=== PATIENT | male | born 1965 | race African-American/Black ===

== ENCOUNTER 2018-10-16 07:33 | Inpatient (IN) | payer OTHER ==
[2018-10-16] VITALS (17 sets, daily range): BP systolic 165–235; BP diastolic 95–134
[~2018-10-16] VITALS: Ht 188 cm; Wt 124.9 kg
--- NOTE | ~2018-10-16 | PROC ---
[facility] [address] [place] [address] PROCEDURE REPORT Name: BENITO DYER JR Room: [address] ADM IN M.R.#: [id number] Admission: 10/16/18 Attend Phys: Andrew Olivo MD Discharge: Date of : 63 Report #: [id number] THIS REPORT FOR: //name// For GI report, please see the Provation report in Perceptive 7 content. By: 0650Medical Records Staff BRIGID /MARIBEL
[~2018-10-16 07:33] MED LIST: CATAPRES0.2 MG PO; COREG25 MG PO; HYZAAR 100-251 EACH PO; NORVASC10 MG PO
[2018-10-16 07:54] LABS: ABSOLUTE EOSINOPHILS 0.2 thou/uL (0.0-0.7); ABSOLUTE MONOCYTES 0.6 thou/uL (0.0-1.2); ABSOLUTE NEUTROPHILS 7.3 thou/uL (1.6-8.1); BASOPHILS 0.4 %; EOSINOPHILS 1.4 %; HEMATOCRIT 20.5 % (42.0-52.0); LYMPHOCYTES 26.9 %; MCH 29.2 pg (26.0-34.0); MCHC 33.6 g/dL (28.0-37.0); MCV 87.1 fL (80.0-100.0); MONOCYTES 5.8 %; MPV 8.7 fl. (7.2-11.1); NUCLEATED RBCS 0 /100WBC; PLATELET COUNT* 235 thou/uL (150-400); POLYS 65.5 %; RBC 2.35 mil/uL (4.50-6.00); RDW-CV 14.2 % (10.5-14.5); WBC 11.1 thou/uL (4.0-11.0)
[2018-10-16 08:01] LABS: HEMOGLOBIN 6.9 gm/dL (14.0-18.0)
[2018-10-16 08:02] LABS: ANION GAP 7 mmol/L (7-16); BUN 105 mg/dL (7-18); CALCIUM 8.3 mg/dL (8.5-10.1); CHLORIDE 107 mmol/L (98-107); CO2 26 mmol/L (21-32); CREATININE 3.5 mg/dL (0.6-1.3); GLUCOSE 215 mg/dL (70-99); POTASSIUM 3.8 mmol/L (3.5-5.1); SODIUM 140 mmol/L (136-145)
[2018-10-16 08:06] LABS: PROTIME 10.2 Seconds (9.20-11.50)
[2018-10-16 08:11] LABS: ALBUMIN 2.4 g/dL (3.4-5.0); ALKALINE PHOSPHATASE 68 U/L (46-116); SGOT 16 U/L (15-37); SGPT 25 U/L (30-65); TOTAL BILIRUBIN 0.1 mg/dL (<0.1-1.0); TOTAL PROTEIN 5.3 g/dL (6.4-8.2); TROPONIN-I LEVEL <0.06 ng/mL (<0.06)
[2018-10-16 15:20] LABS: HEMATOCRIT 21.6 % (42.0-52.0); HEMOGLOBIN 7.3 gm/dL (14.0-18.0)
[2018-10-16 16:13] LABS: URINE BILIRUBIN NEGATIVE (Negative); URINE BLOOD TRACE (Negative); URINE CLARITY CLEAR; URINE COLOR YELLOW; URINE GLUCOSE-RANDOM 1+ (Negative); URINE KETONES NEGATIVE (Negative); URINE LEUKOCYTES-REFLEX NEGATIVE (Negative); URINE NITRITE-REFLEX NEGATIVE (Negative); URINE PROTEIN 2+ (Negative); URINE UROBILINOGEN 0.2 E.U./dl (0.2-1.0)
[2018-10-16 16:23] LABS: BACTERIA-REFLEX None Seen /HPF (None Seen); CASTS None Seen /LPF (None Seen); CRYSTALS None Seen /LPF (None Seen); MUCUS 0-3 Light strn/LPF (None Seen); SQUAMOUS 0-3 Few /LPF (0-3); URINE RBC None Seen /HPF (0-2); URINE WBC-REFLEX None Seen /HPF (0-5)
[2018-10-16 16:26] LABS: AMP/METHAMP Negative (Negative); BARBITURATES Negative (Negative); BENZODIAZEPINES Negative (Negative); COCAINE Negative (Negative); METHADONE Negative (Negative); OPIATES Negative (Negative); PCP Negative (Negative); THC Negative (Negative)
[2018-10-16 18:19] LABS: HEMATOCRIT 23.1 % (42.0-52.0); HEMOGLOBIN 7.8 gm/dL (14.0-18.0)
[2018-10-17] VITALS (38 sets, daily range): BP systolic 159–222; BP diastolic 92–122
[2018-10-17 05:35] LABS: ABSOLUTE BASOPHILS 0.1 thou/uL (0.0-0.2); ABSOLUTE EOSINOPHILS 0.2 thou/uL (0.0-0.7); ABSOLUTE LYMPHOCYTES 2.6 thou/uL (0.8-5.3); ABSOLUTE MONOCYTES 0.8 thou/uL (0.0-1.2); ABSOLUTE NEUTROPHILS 12.2 thou/uL (1.6-8.1); BASOPHILS 0.5 %; EOSINOPHILS 1.4 %; HEMATOCRIT 23.9 % (42.0-52.0); HEMOGLOBIN 7.9 gm/dL (14.0-18.0); LYMPHOCYTES 16.5 %; MCH 29.5 pg (26.0-34.0); MCV 89.4 fL (80.0-100.0); MONOCYTES 5.3 %; MPV 8.7 fl. (7.2-11.1); NUCLEATED RBCS 0 /100WBC; PLATELET COUNT* 276 thou/uL (150-400); POLYS 76.3 %; RBC 2.68 mil/uL (4.50-6.00); RDW-CV 14.5 % (10.5-14.5); WBC 15.9 thou/uL (4.0-11.0)
[2018-10-17 05:51] LABS: ANION GAP 8 mmol/L (7-16); BUN 80 mg/dL (7-18); CALCIUM 8.6 mg/dL (8.5-10.1); CHLORIDE 114 mmol/L (98-107); CHOLESTEROL 186 mg/dL (<200); CO2 25 mmol/L (21-32); CREATININE 2.9 mg/dL (0.6-1.3); GLUCOSE 197 mg/dL (70-99); HDL CHOLESTEROL 26 mg/dL (>40); LDL CHOLESTEROL 87 mg/dL (<100); POTASSIUM 3.6 mmol/L (3.5-5.1); SODIUM 147 mmol/L (136-145); TC:HDL 7.2 Ratio (Not establshd); TRIGLYCERIDE 368 mg/dL (<150); VLDL 74 mg/dL (<40)
[2018-10-17 05:52] LABS: SERUM ASSESSMENT CLEAR
[2018-10-17 10:08] LABS: GLYCOHEMOGLOBIN (HGB A1C) 8.7 % (4.8-5.6)
--- NOTE | 2018-10-17 13:50 | EKG ---
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[facility] : 1965 Requested By: Huey Pena Order Number: [id number] MD: Medhat Pond Measurements Intervals [place] Rate: 87 P: 36 VA: 150 QRS: 18 QRSD: 94 T: 149 QT: 394 QTc: 474 Interpretive Statements Sinus rhythm Left ventricular hypertrophy Abnormal T, consider ischemia, lateral leads or LV strain No previous ECG available for comparison Electronically Signed On 10-17-2018 13:50:43 CDT by Medhat Pond [email or web address] <ELECTRONICALLY SIGNED> By: Medhat Pond MD, [facility] 10/17/18 1350 0804 08 Medhat Pond MD, FAC /EPI
--- NOTE | 2018-10-17 15:30 | 2DMMODE ---
[place] [address] 2 D/M-MODE ECHOCARDIOGRAM Name: BENITO DYER JR Room: [address] IN [facility]#: [id number] Admission: 10/16/18 Attend Phys: Andrew Olivo, Discharge: Date of : 63 Date of Service: 10/17/18 1529 Report #: [id number] THIS REPORT FOR: //name// APPROVED REPORT Study performed: 10/17/2018 13:34:33 EXAM: Comprehensive 2D, Doppler, and color-flow Echocardiogram Patient Location: In-Patient Room #: 002 Status: routine BSA: 2.62 HR: 102 bpm BP: 179/103 mmHg Rhythm: NSR Other Information Study Quality: Good Indications CVA/TIA Echo Enhancing Agent Indication: Rule out Shunt Agent(s) / Amount(s) Used: Agitated Saline 10 cc 2D Dimensions IVSd: 16.04 (7-11mm) LVOT Diam: 23.12 (18-24mm) LVDd: 54.17 mm PWd: 15.29 (7-11mm) Ascending Ao: 33.84 (22-36mm) LVDs: 33.50 (25-40mm) Aortic Root: 36.48 mm Volumes Left Atrial Volume (Systole) LA ESV Index: 44.30 mL/m2 Aortic Valve AoV Peak Mahin.: 1.85 m/s AO Peak Gr.: 13.62 mmHg LVOT Max P.13 mmHg AO Mean Gr.: 7.86 mmHg LVOT Mean P.51 mmHg LVOT Max V: 1.33 m/s AO V2 VTI: 26.10 cm LVOT Mean V: 0.87 m/s HEATHER (VTI): 3.95 cm2 LVOT V1 VTI: 24.56 [place] [address] 2 D/M-MODE ECHOCARDIOGRAM Name: BENITO DYER JR Room: [address] IN .R.#: [id number] Admission: 10/16/18 Attend Phys: Andrew Olivo, Discharge: Date of : 63 Date of Service: 10/17/18 1529 Report #: [id number] Mitral Valve E/A Ratio: 0.87 MV Decel. Time: 173.55 ms MV E Max Mahin.: 0.92 m/s MV PHT: 50.33 ms MVA (PHT): 4.37 cm2 TDI E/Lateral E': 10.22 E/Medial E': 9.20 Medial E' Mahin.: 0.10 m/s Lateral E' Mahin.: 0.09 m/s Pulmonary Valve PV Peak Mahin.: 1.44 m/s PV Peak Gr.: 8.25 mmHg Left Ventricle The left ventricle is normal size. There is normal LV segmental wall motion. Moderate concentric left ventricular hypertrophy. Left ventricular systolic function is normal. The left ventricular ejection fraction is within the normal range. LVEF is 65%. Grade I - abnormal relaxation pattern. Right Ventricle The right ventricle is normal size. The right ventricular systolic function is normal. Atria Left atrium is mildly dilated. Interatrial septum is intact without evidence of ASD or PFO. The right atrium size is normal. Aortic Valve The aortic valve is normal in structure. No aortic regurgitation is present. There is no aortic valvular stenosis. Mitral Valve The mitral valve is normal in structure. Mild mitral regurgitation. No evidence of mitral valve stenosis. Tricuspid Valve The tricuspid valve is normal in structure. Unable to assess PA pressure. Trace tricuspid regurgitation. Pulmonic Valve The pulmonary valve is normal in structure. There is no pulmonic [place] [address] 2 D/M-MODE ECHOCARDIOGRAM Name: BENITO DYER Room: [address] IN [facility]#: [id number] Admission: 10/16/18 Attend Phys: Andrew Olivo, Discharge: Date of : 63 Date of Service: 10/17/18 1529 Report #: [id number] Great Vessels The aortic root is normal in size. IVC is normal in size and collapses >50% with inspiration. Pericardium There is no pericardial effusion. <Conclusion> The left ventricle is normal size. Moderate concentric left ventricular hypertrophy. Left ventricular systolic function is normal. The left ventricular ejection fraction is within the normal range. LVEF is 65%. Grade I - abnormal relaxation pattern. The right ventricle is normal size. Left atrium is mildly dilated. The aortic valve is normal in structure. The mitral valve is normal in structure. Mild mitral regurgitation. The tricuspid valve is normal in structure. IVC is normal in size and collapses >50% with inspiration. There is no pericardial effusion. There is normal LV segmental wall motion. <ELECTRONICALLY SIGNED> By: Medhat Pond MD, FACC 10/17/18 1529 1529 1529 Medhat Pond MD, FACC /INF
[2018-10-18 00:28] VITALS: BP 179/107
[2018-10-18 04:00] VITALS: BP 169/90
[2018-10-18 05:19] LABS: ABSOLUTE BASOPHILS 0.1 thou/uL (0.0-0.2); ABSOLUTE EOSINOPHILS 0.3 thou/uL (0.0-0.7); ABSOLUTE LYMPHOCYTES 2.4 thou/uL (0.8-5.3); ABSOLUTE MONOCYTES 0.8 thou/uL (0.0-1.2); ABSOLUTE NEUTROPHILS 9.3 thou/uL (1.6-8.1); BASOPHILS 0.6 %; EOSINOPHILS 2.1 %; HEMATOCRIT 22.1 % (42.0-52.0); HEMOGLOBIN 7.3 gm/dL (14.0-18.0); LYMPHOCYTES 18.6 %; MCH 29.6 pg (26.0-34.0); MCHC 32.8 g/dL (28.0-37.0); MCV 90.4 fL (80.0-100.0); MPV 8.6 fl. (7.2-11.1); NUCLEATED RBCS 0 /100WBC; PLATELET COUNT* 269 thou/uL (150-400); POLYS 72.7 %; RBC 2.45 mil/uL (4.50-6.00); RDW-CV 14.9 % (10.5-14.5); WBC 12.8 thou/uL (4.0-11.0)
[2018-10-18 05:33] LABS: ALBUMIN 2.5 g/dL (3.4-5.0); CALCIUM 8.2 mg/dL (8.5-10.1); CREATININE 2.8 mg/dL (0.6-1.3); POTASSIUM 3.7 mmol/L (3.5-5.1); TOTAL BILIRUBIN 0.3 mg/dL (<0.1-1.0); TOTAL PROTEIN 5.6 g/dL (6.4-8.2)
[2018-10-18 07:45] VITALS: BP 194/111
[2018-10-18 12:22] VITALS: BP 187/106
[2018-10-18 15:44] VITALS: BP 176/90
[2018-10-18 20:00] VITALS: BP 186/96
[2018-10-19] VITALS (7 sets, daily range): BP systolic 146–192; BP diastolic 69–107
[2018-10-19 05:01] LABS: HEMATOCRIT 21.8 % (42.0-52.0); HEMOGLOBIN 7.2 gm/dL (14.0-18.0); MCH 29.7 pg (26.0-34.0); MCHC 32.9 g/dL (28.0-37.0); MCV 90.3 fL (80.0-100.0); MPV 8.1 fl. (7.2-11.1); RBC 2.42 mil/uL (4.50-6.00); RDW-CV 14.4 % (10.5-14.5); WBC 9.7 thou/uL (4.0-11.0)
[2018-10-19 05:17] LABS: ALBUMIN 2.4 g/dL (3.4-5.0); CALCIUM 8.1 mg/dL (8.5-10.1); CREATININE 2.9 mg/dL (0.6-1.3); POTASSIUM 3.5 mmol/L (3.5-5.1); TOTAL BILIRUBIN 0.3 mg/dL (<0.1-1.0); TOTAL PROTEIN 5.5 g/dL (6.4-8.2)
[2018-10-20] VITALS: BP 184/105
[2018-10-20 04:00] VITALS: BP 188/108
[2018-10-20 07:05] VITALS: BP 165/91
[2018-10-20 11:06] LABS: ABSOLUTE EOSINOPHILS 0.1 thou/uL (0.0-0.7); ABSOLUTE LYMPHOCYTES 0.9 thou/uL (0.8-5.3); ABSOLUTE MONOCYTES 0.6 thou/uL (0.0-1.2); ABSOLUTE NEUTROPHILS 8.5 thou/uL (1.6-8.1); BASOPHILS 0.3 %; HEMATOCRIT 22.1 % (42.0-52.0); HEMOGLOBIN 7.4 gm/dL (14.0-18.0); LYMPHOCYTES 8.5 %; MCH 30.3 pg (26.0-34.0); MCHC 33.5 g/dL (28.0-37.0); MCV 90.3 fL (80.0-100.0); MONOCYTES 5.9 %; MPV 8.5 fl. (7.2-11.1); NUCLEATED RBCS 0 /100WBC; PLATELET COUNT* 302 thou/uL (150-400); POLYS 84.3 %; RBC 2.45 mil/uL (4.50-6.00); RDW-CV 14.8 % (10.5-14.5); WBC 10.1 thou/uL (4.0-11.0)
[2018-10-20 11:12] LABS: CALCIUM 8.6 mg/dL (8.5-10.1); CREATININE 2.8 mg/dL (0.6-1.3); MAGNESIUM 1.9 mg/dL (1.8-2.4); POTASSIUM 3.5 mmol/L (3.5-5.1)
[2018-10-20 12:46] VITALS: BP 194/114
[2018-10-20 12:47] LABS: URINE BILIRUBIN NEGATIVE (Negative); URINE BLOOD 3+ (Negative); URINE CLARITY CLEAR; URINE COLOR YELLOW; URINE GLUCOSE-RANDOM 1+ (Negative); URINE KETONES NEGATIVE (Negative); URINE LEUKOCYTES-REFLEX NEGATIVE (Negative); URINE NITRITE-REFLEX NEGATIVE (Negative); URINE PROTEIN 3+ (Negative); URINE SPECIFIC GRAVITY 1.025 (1.005-1.030); URINE UROBILINOGEN 0.2 E.U./dl (0.2-1.0)
[2018-10-20 12:56] LABS: BACTERIA-REFLEX 1-9 Few /HPF (None Seen); CRYSTALS None Seen /LPF (None Seen); FINE GRANULAR CASTS 4-10 Moderate /LPF (None Seen); HYALINE CASTS 4-10 Moderate /LPF (None Seen); MUCUS 0-3 Light strn/LPF (None Seen); SQUAMOUS 4-10 Moderate /LPF (0-3); URINE WBC-REFLEX 0-5 Rare /HPF (0-5)
[2018-10-20 16:00] VITALS: BP 168/95
[2018-10-20 20:15] VITALS: BP 186/103
[2018-10-21] VITALS (7 sets, daily range): BP systolic 150–192; BP diastolic 86–107
[2018-10-21 12:49] LABS: % SATURATION 10 % (20-39); IRON 23 ug/dL (50-175)
--- NOTE | 2018-10-21 14:47 | EKG ---
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: : 1965 Requested By: Andrew Olivo Order Number: [id number] Reading MD: Dimitri Coe Measurements Intervals [place] Rate: 110 P: 68 [place]: 132 QRS: 33 QRSD: 92 T: 194 QT: 324 QTc: 439 Interpretive Statements Sinus tachycardia Probable LVH with secondary repol abnrm Anterior ST elevation, probably due to LVH Baseline wander in lead(s) V1 Compared to ECG 10/16/2018 08:04:04 No significant changes noted Electronically Signed On 10-21-2018 14:47:34 CDT by Dimitri Coe [email or web address] <ELECTRONICALLY SIGNED> By: Dimitri Coe MD, FACC 10/21/18 1447 1748 1748 Dimitri Coe MD, [facility] /EPI
--- NOTE | 2018-10-21 18:03 | CON ---
[address] [address] CONSULTATION Name: BENITO DYER JR Room: [address] IN .R.#: [id number] Admission: 10/16/18 Attend Phys: Andrwe Olivo MD Discharge: Date of : 63 Report #: [id number] THIS REPORT FOR: //name// CC: Andrew Olivo [facility] physician/PCP NEUROLOGY CONSULTATION HISTORY OF PRESENT ILLNESS: The patient is a 53-year-old male who presented to the Emergency Room with slurred speech and right upper extremity weakness. The patient's family heard him in the bathroom and when they got to him, they noticed urine over the bed. The patient was standing in a confused, stupor. Upon arrival to the Emergency Department, the patient's speech and confusion had improved. Apparently, the patient stayed up late last night to work. The patient has also noted some vomiting and diarrhea for 2 days with dark brown stools. At this point, his states that he has returned to his baseline. The patient does have a history of hypertension. He takes aspirin 81 mg daily and takes his blood pressure medication as prescribed. PAST MEDICAL HISTORY: Hypertension. PAST SURGICAL HISTORY: Negative. MEDICATIONS: Clonidine 0.2 mg b.i.d. and carvedilol 25 mg b.i.d. ALLERGIES: None. PHYSICAL EXAMINATION: VITAL SIGNS: Temperature of 37, pulse rate 107, respiratory rate 25, blood pressure 200/109, and bedside pulse oximetry 100% on room air. NEUROLOGIC: Cranial nerves 2-12 are grossly intact. Motor exam demonstrates symmetrical strength in all 4 extremities with tone and bulk normal. There is no evidence of dysmetria. LABORATORY DATA: Hematology: White blood cell count 15.9, hemoglobin 7.9, and hematocrit 23.9. Chemistry: Sodium 147, potassium 3.6, chloride 114, carbon dioxide 25, BUN 80, creatinine 2.9, and glucose 197. Triglycerides 368, cholesterol 186, LDL cholesterol 87, and HDL cholesterol 26. Drug screen negative. IMAGING STUDIES: MRI of the head demonstrates multiple punctate foci in the right frontal region and a single focus in the left thalamus consistent with acute stroke. MRA of the head and neck demonstrate possible short segment narrowing of the left M1 segment, questionable small aneurysm at the junction of the left common carotid artery and proximal M1 segment. IMPRESSION AND PLAN: This patient has had several punctate strokes, [place] [address] CONSULTATION Name: BENITO DYER JR Room: [address]#: [id number] Admission: 10/16/18 Attend Phys: Andrew Olivo MD Discharge: Date of : 63 Report #: [id number] most likely secondary to hypertension. When the patient came to the Emergency Room, his blood pressure was initially 214/129, this is the highest reading that he has had, although he has had several high readings as well. His highest reading has been 235/131. I do not think it is necessary for the patient to have an elevated blood pressure as is sometimes the case with stroke. I think the patient would benefit from better blood pressure control on a more immediate basis. The patient has not had an echocardiogram in over 3 years and this will be ordered for him. Given the bilateral nature of these strokes, a thrombus should be considered, although this is most likely secondary to hypertension. The patient will probably also benefit from medication for hyperlipidemia. The neurologist personal care home administrator on Sunday will follow the patient. I thank you for your kind referral of this patient. <ELECTRONICALLY SIGNED> By: Gracy Dasilva DO 10/21/18 1803 1222 0149Gracy Dasilva DO /nt
[2018-10-22] VITALS: BP 171/100
[2018-10-22 04:00] VITALS: BP 172/99
[2018-10-22 08:00] VITALS: BP 102/51
[2018-10-22 08:21] LABS: ABSOLUTE EOSINOPHILS 0.3 thou/uL (0.0-0.7); ABSOLUTE LYMPHOCYTES 1.3 thou/uL (0.8-5.3); ABSOLUTE MONOCYTES 0.7 thou/uL (0.0-1.2); ABSOLUTE NEUTROPHILS 6.4 thou/uL (1.6-8.1); BASOPHILS 0.5 %; EOSINOPHILS 3.6 %; HEMATOCRIT 22.6 % (42.0-52.0); HEMOGLOBIN 7.6 gm/dL (14.0-18.0); LYMPHOCYTES 14.9 %; MCH 30.3 pg (26.0-34.0); MCHC 33.6 g/dL (28.0-37.0); MCV 90.2 fL (80.0-100.0); MONOCYTES 8.2 %; MPV 8.3 fl. (7.2-11.1); NUCLEATED RBCS 0 /100WBC; PLATELET COUNT* 365 thou/uL (150-400); POLYS 72.8 %; RBC 2.51 mil/uL (4.50-6.00); WBC 8.8 thou/uL (4.0-11.0)
[2018-10-22 08:27] LABS: CALCIUM 8.6 mg/dL (8.5-10.1); CREATININE 2.6 mg/dL (0.6-1.3); MAGNESIUM 2.2 mg/dL (1.8-2.4); POTASSIUM 4.1 mmol/L (3.5-5.1)
[2018-10-22 12:43] VITALS: BP 160/91
--- NOTE | 2018-10-22 14:05 | PATH ---
[facility] [address] [place] [address] PATHOLOGY RPT PROCEDURE Name: ISAIAH COPE JR Room: [address] IN .R.#: [id number] Admission: 10/16/18 Date of : 63 Discharge: Report #: [id number] Path Case #: [id number] LCA Accession Number: [id number] . 01 Material submitted: . stomach - ANTRAL BIOPSY FOR H-PYLORI . 01 Clinical history: . None provided . 02 Diagnosis: Antral biopsy (for H. pylori): - Severe chronic antral gastritis with scattered Helicobacter pylori organisms, negative for dysplasia. (SALVADOR:mone; 10/22/2018) . Special stain: H. pylori immuno MBR/10/22/2018 . 02 Electronically signed: . Dax Ye MD, Pathologist NPI- [id number] . 01 Gross description: . The specimen is received in formalin, labeled "Isaiah Cope Jr., antral biopsy for H. pylori". Received are two segments of pale mccullough soft tissue ranging in size from 0.3 to 0.5 cm in maximum dimensions. The specimen is submitted entirely in cassette A1. (CAA; 10/18/2018) QAC/QAC . 02 Pathologist provided ICD-10: K29.50, B96.81 . 02 CPT . 181288, O92454 Specimen Comment: A courtesy copy of this report has been sent to Specimen Comment: [phone], . Specimen Comment: Report sent to / DR YOO Performed at: [address], [place], [place] [id number] MD Neheimas Aguilar MD Phone: [phone] Performed at: [address] [address] Ayla [address], [place], [place] [id number] MD Dax Ye MD Phone: [phone]
[2018-10-22 20:00] VITALS: BP 164/93
[2018-10-23] VITALS (7 sets, daily range): BP systolic 149–197; BP diastolic 85–108
[2018-10-23 05:07] LABS: ABSOLUTE BASOPHILS 0.1 thou/uL (0.0-0.2); ABSOLUTE EOSINOPHILS 0.4 thou/uL (0.0-0.7); ABSOLUTE LYMPHOCYTES 1.9 thou/uL (0.8-5.3); ABSOLUTE MONOCYTES 0.9 thou/uL (0.0-1.2); ABSOLUTE NEUTROPHILS 5.8 thou/uL (1.6-8.1); BASOPHILS 0.6 %; EOSINOPHILS 4.2 %; HEMATOCRIT 21.8 % (42.0-52.0); HEMOGLOBIN 7.3 gm/dL (14.0-18.0); LYMPHOCYTES 21.2 %; MCH 30.3 pg (26.0-34.0); MCHC 33.7 g/dL (28.0-37.0); MONOCYTES 10.1 %; MPV 8.1 fl. (7.2-11.1); NUCLEATED RBCS 0 /100WBC; PLATELET COUNT* 362 thou/uL (150-400); POLYS 63.9 %; RBC 2.42 mil/uL (4.50-6.00); RDW-CV 15.1 % (10.5-14.5)
[2018-10-23 05:28] LABS: CALCIUM 8.7 mg/dL (8.5-10.1); CREATININE 2.5 mg/dL (0.6-1.3)
--- NOTE | 2018-10-23 14:06 | PATH ---
[facility] [address] [place] [address] PATHOLOGY RPT PROCEDURE Name: ISAIAH COPE JR Room: [address] IN M.R.#: [id number] Admission: 10/16/18 Date of : 63 Discharge: Report #: [id number] Path Case #: [id number] LCA Accession Number: [id number] . 01 Material submitted: . PART A: cecum - CECAL POLYP PART B: colon - PROXIMAL ASCENDING COLON POLYP PIECE MEAL RESECTION. Modifiers: proximal, ascending PART C: colon - MID ASCENDING COLON POLYP PIECE MEAL RESECTION. Modifiers: mid, ascending PART D: colon - DESCENDING COLON POLYP. Modifiers: descending . 01 Clinical history: . None provided . 02 Diagnosis: A. Cecal polyp: - Tubular adenoma, negative for high grade dysplasia. . B. Proximal ascending colon polyp, piecemeal resection: - Tubular adenoma, negative for high grade dysplasia. . C. Mid ascending colon polyp, piecemeal resection: - Tubular adenoma, negative for high grade dysplasia. . D. Descending colon polyp: - Tubular adenoma, negative for high grade dysplasia. . (SALVADOR:fabrice; 10/23/2018) QLDayday/10/23/2018 . 02 Electronically signed: . Dax Ye MD, Pathologist NPI- [id number] . 01 Gross description: . A. Received in formalin labeled "Anatoliy Tarango Isaiah, cecal polyp," is a single segment of mccullough soft tissue measuring 0.3 cm in maximum dimension. The specimen is entirely submitted in cassette A1. . B. Received in formalin labeled "Anatoliy Jr Isaiah, proximal ascending colon polyp, piecemeal resection," is a 2.5 x 1.4 x 1.4 cm polypoid piece of mccullough soft tissue. The presumed margin is inked and the tissue is sectioned perpendicular to the margin and submitted entirely in cassettes B1 through B3. Additionally received in the same container is a 1.8 x 1.2 x 1.4 cm polypoid piece of mccullough soft tissue. The presumed margin is inked and the specimen is sectioned perpendicular to the margin and entirely submitted in cassettes B4 through B6. Also received [place] [address] PATHOLOGY RPT PROCEDURE Name: ISAIAH COPE JR Room: [address] IN [facility]#: [id number] Admission: 10/16/18 Date of : 63 Discharge: Report #: [id number] Path Case #: [id number] 2.1 x 1.4 x 1.2 cm polypoid piece of mccullough soft tissue. The presumed margin is inked and the specimen is sectioned perpendicular to the margin and entirely submitted in cassettes B7 and B8. Additionally received in the same container are multiple fragments of mccullough soft tissue measuring 2.0 x 1.5 x 0.4 cm in aggregate dimensions. The specimen is filtered and entirely submitted in cassette B9. . C. Received in formalin labeled "Isaiah Cope Jr, mid ascending colon polyp-piecemeal resection," is a 2.0 x 1.4 x 1.5 cm polypoid piece of mccullough soft tissue. The margin is inked and the tissue is sectioned perpendicular to the margin and submitted entirely in cassette C1-C3. Also received in the container are multiple fragments of mccullough soft tissue measuring 2.5 x 1.5 x 0.5 cm in aggregate dimensions. The specimen is filtered and entirely submitted in cassette C4. . D. Received in formalin labeled "Isaiah Cope Jr, descending colon polyp," are multiple segments of mccullough soft tissue measuring 0.7 x 0.4 x 0.2 cm in aggregate dimensions. The specimen is filtered and entirely submitted in cassette D1. (TSD; 10/21/2018) TOB/TOB . 02 Pathologist provided ICD-10: D12.0, D12.2, D12.4 . 02 CPT . 027794, 551928, 994269, 658402 Specimen Comment: A courtesy copy of this report has been sent to Specimen Comment: [phone], . Specimen Comment: Report sent to / DR YOO Performed at: [address], [place], [place] [id number] MD Nehemias Aguilar MD Phone: [phone] Performed at: [facility] [address], [place], [place] [id number] MD Dax Ye MD Phone: [phone]
[2018-10-24] VITALS (8 sets, daily range): BP systolic 113–195; BP diastolic 78–110
[2018-10-24 04:39] LABS: ABSOLUTE BASOPHILS 0.1 thou/uL (0.0-0.2); ABSOLUTE EOSINOPHILS 0.3 thou/uL (0.0-0.7); ABSOLUTE MONOCYTES 0.8 thou/uL (0.0-1.2); ABSOLUTE NEUTROPHILS 7.5 thou/uL (1.6-8.1); BASOPHILS 0.7 %; EOSINOPHILS 3.2 %; HEMATOCRIT 23.9 % (42.0-52.0); HEMOGLOBIN 7.8 gm/dL (14.0-18.0); LYMPHOCYTES 18.6 %; MCH 29.6 pg (26.0-34.0); MCHC 32.5 g/dL (28.0-37.0); MONOCYTES 7.8 %; MPV 8.2 fl. (7.2-11.1); NUCLEATED RBCS 1 /100WBC; PLATELET COUNT* 400 thou/uL (150-400); POLYS 69.7 %; RBC 2.63 mil/uL (4.50-6.00); RDW-CV 15.4 % (10.5-14.5); WBC 10.8 thou/uL (4.0-11.0)
[2018-10-24 04:52] LABS: ALBUMIN 2.4 g/dL (3.4-5.0); CALCIUM 8.7 mg/dL (8.5-10.1); CREATININE 2.5 mg/dL (0.6-1.3); POTASSIUM 4.1 mmol/L (3.5-5.1); TOTAL BILIRUBIN 0.3 mg/dL (<0.1-1.0); TOTAL PROTEIN 6.2 g/dL (6.4-8.2)
--- NOTE | 2018-10-24 12:09 | CON ---
[address] [address] CONSULTATION Name: BENITO DYER JR Room: [address] IN M.R.#: [id number] Admission: 10/16/18 Attend Phys: Andrew Olivo MD Discharge: Date of : 63 Report #: [id number] THIS REPORT FOR: //name// CC: Andrew Olivo [facility] physician/PCP DICTATED BY: Ene BEAVERSP DATE OF SERVICE: 10/16/2018 The patient does not have a PCP. Please note at the time of this dictation, the patient was seen and physically examined by myself. REASON FOR CONSULTATION: Acute anemia, GI bleed. HISTORY OF PRESENT ILLNESS: This 53-year-old male presented to the Emergency Room after waking up this morning. He was found to be incontinent of urine, both in bed and in the bathroom. He had slurred speech and he had difficulty answering questions. The family was concerned when they found him this way and prompted to bring him to the Emergency Room. In further investigation, the patient on Sunday was not feeling well. He states he just felt sick to his stomach. He did have nausea with vomiting and his said it was very dark in nature and he had gotten it all over in the bathroom as well as he had a very loose stool that was very dark in nature on Sunday. He also had another dark stool on Sunday, he has not had any thus far and they were only 1. Otherwise, he states he has not had any more nausea or vomiting since Sunday. He states he just has not felt well over the last couple of days. He has been eating and drinking without any further nausea or vomiting. He denies any abdominal pain. He denies any NSAID use, fever or chills, shortness of air or any chest pain at this time. The patient has never seen a transport assistant before. ALLERGIES: No known drug allergies. MEDICATIONS: From home, Coreg and Catapres. PAST MEDICAL HISTORY: Hypertension, prediabetic. PAST SURGICAL HISTORY: Umbilical hernia repair. FAMILY HISTORY: Negative for any GI or female cancers. SOCIAL HISTORY: He is , lives with his . Denies any alcohol, tobacco [place] [address] CONSULTATION Name: JONNA DYERSUE COOMBS Room: [address]#: [id number] Admission: 10/16/18 Attend Phys: Andrew Olivo MD Discharge: Date of : 63 Report #: [id number] REVIEW OF SYSTEMS: Twelve-point review of systems is essentially negative except what is mentioned in the HPI. PHYSICAL EXAMINATION: VITAL SIGNS: Temperature 36.1, pulse 72, respirations 20, blood pressure 168/95. HEART: Regular rate and rhythm. LUNGS: Clear. ABDOMEN: Soft, positive bowel sounds in all 4 quadrants with no masses or tenderness noted. NEUROLOGIC: He is an alert and oriented x3. His speech is normal and he is answering questions very appropriately at this time. His sensation is equal bilaterally as well as his strength. LABORATORY DATA: Hemoglobin on admission is 6.9, white count is 11.1, platelets 235, MCV is 87. BUN is 105 and creatinine is 3.5 with a GFR of 22. PT is 10.2, INR is 1. CT of the abdomen and pelvis showed a large gallstone and fatty liver disease, otherwise negative. CT of the head, no acute intracranial process noted suggestive of some small vesicular ischemic changes noted and possibly an old lacunar infarct noted. IMPRESSION: 1. Hematemesis. 2. Melanotic stool. 3. Acute anemia. 4. Leukocytosis. 5. Acute renal failure. 6. Confusion, possible transient ischemic attack, resolved. PLAN: 1. EGD tomorrow with Dr. Lozoya. 2. Protonix drip. 3. Further recommendations to be made once the procedure has been performed tomorrow. 4. Transfuse to keep his hemoglobin greater than 7. 5. Further recommendations to be made once the procedure has been performed tomorrow. Thank you for allowing us to participate in this patient's care. Please do not hesitate to call with any questions in regard to this consult. <ELECTRONICALLY SIGNED> By: Baldemar Lozoya DO 10/24/18 1209 1256 0344Baldemar Lozoya DO /nt
[2018-10-25 00:56] VITALS: BP 171/104
[2018-10-25 04:30] VITALS: BP 174/109
[2018-10-25 05:02] LABS: ALBUMIN 2.4 g/dL (3.4-5.0); CALCIUM 8.8 mg/dL (8.5-10.1); CREATININE 2.6 mg/dL (0.6-1.3); PHOSPHORUS* 3.7 mg/dL (2.5-4.9); POTASSIUM 4.2 mmol/L (3.5-5.1)
[2018-10-25 07:20] VITALS: BP 180/99
[2018-10-25] MEDS ORDERED: ZETIA10 MG PO (11:53)
[2018-10-25] MEDS ORDERED: IRON325 PO (11:53)
[2018-10-25] MEDS ORDERED: ATORVASTATIN CA80 MG PO (11:54)
[2018-10-25] MEDS ORDERED: NORVASC10 MG PO (11:54)
[2018-10-25] MEDS ORDERED: CATAPRES-TTS 20.2 MG TRANSDERM (11:54)
[2018-10-25] MEDS ORDERED: CHLORTHALIDONE25 MG PO (11:55)
[2018-10-25] MEDS ORDERED: PIOGLITAZONE15 MG PO (11:56)
[2018-10-25] MEDS ORDERED: NEXIUM40 MG PO (11:56)
[2018-10-25] MEDS ORDERED: SPIRONOLACTONE25 MG PO (11:57)
[2018-10-25] MEDS ORDERED: ASPIRIN81 M2 PO (11:57)
[2018-10-25 12:52] VITALS: BP 174/109
[2018-10-25 13:50] VITALS: BP 174/109
--- NOTE | 2018-10-25 15:11 | CON ---
[address] [address] CONSULTATION Name: BENITO DYER JR Room: [address] IN M.R.#: [id number] Admission: 10/16/18 Attend Phys: Andrew Olivo MD Discharge: 10/25/18 Date of : 63 Report #: [id number] THIS REPORT FOR: //name// CC: Andrew Olivo FAM physician/PCP DATE OF SERVICE: 10/22/2018 REQUESTING PHYSICIAN: Dr. Snell. REASON FOR CONSULTATION: Acute kidney injury on top of the chronic kidney disease. HISTORY OF PRESENT ILLNESS: The patient is a very pleasant 53-year-old black man who recently moved here from [place] and he was admitted to the hospital on 10/16/2018 with complaints of inability to move his left side of the body. He was confused, so on presentation, code stroke was called, Neurology was consulted. The patient's CT scan was done and his blood pressure was very elevated. He also was found to have a GI bleed. So, from my standpoint, his creatinine was 3.5 on admission, it has been steadily coming down. Today, it is 2.6. He apparently does have a history of chronic kidney disease. I do not know exact baseline his creatinine is, this patient is not a very good historian, but with the help of his , we slowly getting all this information. PAST MEDICAL HISTORY: Includes, 1. Uncontrolled hypertension. 2. Diabetes mellitus type 2. 3. Chronic kidney disease, likely stage 3. 4. Morbid obesity. SOCIAL HISTORY: The patient never smoked, does not use alcohol. FAMILY HISTORY: Strongly positive for hypertension. MEDICATIONS: Reviewed. From my standpoint, now he is on amlodipine 10 mg a day, Coreg 25 mg twice a day and clonidine TTS #2. He was also placed on aspirin, p.r.n. hydralazine, and Actos 50 mg a day. REVIEW OF SYSTEMS: Positive for overall weakness. Poor appetite and difficulty moving his left arm, left leg, but again his neurological symptoms are improving every day. The rest of the systems reviewed and negative. PHYSICAL EXAMINATION: [place] [address] CONSULTATION Name: BENITO DYER JR Room: [address]#: [id number] Admission: 10/16/18 Attend Phys: Andrew Olivo MD Discharge: 10/25/18 Date of : 63 Report #: [id number] GENERAL: Awake, alert. VITAL SIGNS: Blood pressure this morning 102/51 dropped from 172/99 earlier at 4:00 this morning, heart rate 45, down from 91, and respiration rate is 18. HEENT: Pupils are now round. NECK: Fatty. LUNGS: Decreased air movement. CARDIOVASCULAR: Regular rate. ABDOMEN: Obese. LOWER EXTREMITIES: With 1+ edema. LABORATORY DATA: This morning, hemoglobin is 7.6, white count 8.8 thousand. Potassium 4.1, BUN is 33, creatinine 2.6. ASSESSMENT: 1. Acute kidney injury likely due to hypertensive crisis. Blood pressure is better and creatinine is slowly improving. 2. Chronic kidney disease stage 3, again this most likely, I do not have exact baseline of his renal function. His chronic kidney disease, probably combination of hypertension and diabetic nephropathy. 3. Obesity. 4. Diabetes. PLAN: 1. I would like to keep his systolic blood pressure somewhere around 130-140 and diastolic blood pressure of 80 for now. 2. His heart rate is down to 45. So, we will decrease dose of the clonidine. 3. Needs a good blood sugar control. His renal ultrasound is unremarkable. Thank you very much for asking my opinion on this patient. Consultation done on by me today 10/22/2018. I will follow him with you. <ELECTRONICALLY SIGNED> By: Sridhar Puentes MD 10/25/18 1511 1027 1704Alexhal Puentes MD /nt
[2018-10-25 17:09] LABS: METANEPHRINE-PL 29 pg/mL (0-62); NORMETANEPHRINE - PL 277 pg/mL (0-145)
[2018-10-26 19:05] LABS: RENIN 0.579 ng/mL/hr (0.167-5.380)
== END 2018-10-25 13:40 | disposition home or self-care (01) | DRG 380 ==
LOC: M.ERS 07:33 → M.TBA-ER 09:27 → M.ICU 09:27 → M.2W 10-17 17:15
PROVIDERS: Family Medicine; Internal Medicine; Internal Medicine Nephrology; Nurse Practitioner Adult Health; ADMIT Internal Medicine
PROC: 30233N1 Transfusion of Nonautologous Red Blood Cells into Peripheral Vein, Percutaneous Approach (ICD-10-PCS; principal; 2018-10-16)
PROC: 0DB68ZX Excision of Stomach, Via Natural or Artificial Opening Endoscopic, Diagnostic (ICD-10-PCS; 2018-10-17)
PROC: 0DBM8ZZ Excision of Descending Colon, Via Natural or Artificial Opening Endoscopic (ICD-10-PCS; 2018-10-20)
PROC: 0DBK8ZZ Excision of Ascending Colon, Via Natural or Artificial Opening Endoscopic (ICD-10-PCS; 2018-10-20)
PROC: 0DBH8ZZ Excision of Cecum, Via Natural or Artificial Opening Endoscopic (ICD-10-PCS; 2018-10-20)
DX: K22.11 Ulcer of esophagus with bleeding (principal); I63.9 Cerebral infarction, unspecified; N17.0 Acute kidney failure with tubular necrosis; D62 Acute posthemorrhagic anemia; G93.40 Encephalopathy, unspecified; N18.4 Chronic kidney disease, stage 4 (severe); R65.10 Systemic inflammatory response syndrome (SIRS) of non-infectious origin without acute organ dysfunction; I50.32 Chronic diastolic (congestive) heart failure; I13.0 Hypertensive heart and chronic kidney disease with heart failure and stage 1 through stage 4 chronic kidney disease, or unspecified chronic kidney disease; I16.1 Hypertensive emergency; K22.6 Gastro-esophageal laceration-hemorrhage syndrome; K25.4 Chronic or unspecified gastric ulcer with hemorrhage; E11.22 Type 2 diabetes mellitus with diabetic chronic kidney disease; E66.01 Morbid (severe) obesity due to excess calories; K44.9 Diaphragmatic hernia without obstruction or gangrene; E78.1 Pure hyperglyceridemia; D12.2 Benign neoplasm of ascending colon; D12.0 Benign neoplasm of cecum; D12.4 Benign neoplasm of descending colon; K64.4 Residual hemorrhoidal skin tags; E11.65 Type 2 diabetes mellitus with hyperglycemia; Z68.35 Body mass index [BMI] 35.0-35.9, adult; Z79.899 Other long term (current) drug therapy; Z82.49 Family history of ischemic heart disease and other diseases of the circulatory system